=== PATIENT | male | born 1985 | race Caucasian/White ===

== ENCOUNTER 2023-11-26 00:46 | Emergency (ER) | payer OTHER, SELFPAY ==
[2023-11-26 00:49] VITALS: BP 139/99
--- NOTE | 2023-11-26 01:24 | EDRN ---
This RN was alerted by registration that patient was bleeding heavily from his foot. This RN went from Triage 1 to assess patient, pt found with foot wrapped in plastic bag and in work boot, no bleeding noted through bag or boot. This RN alerted
patient that RN would be right with patient. Pt then yelled at RN, 'This is a [facility] emergency and I am in a [facility] emergency room so take care of me' This RN again told patient she would be right with him as soon as the current triage was
finished and had patient sit in Triage 2. Pt shouted to this RN, ' shut up and stop talking to me so you can finish your job and help me, I am more important'. Pt escorted to Triage 2 with his mother. Pt uncooperative during Triage, ETOH noted on
breath and no bleeding noted. 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 Blue hugo placed under foot and call light given to patient.
--- NOTE | 2023-11-26 01:33 | ED.GENMED ---
History of Present Illness
General
Chief Complaint: Skin Surface Trauma
Time Seen by Provider: 11/26/23 00:54
Travel History
Have you had any contact with someone who has COVID-19?: No
Do you have any symptoms of coronavirus? Fever > 100 degrees, chills, cough, shortness of breath, sore throat, loss of taste or smell, muscle aches, or headache?: No
History of Present Illness
History of Present Illness:
38-year-old male presents the emergency department for evaluation of a laceration to the left plantar foot. He stepped on a glass jar that broke. He is uncertain if there is glass in his foot. Last tetanus is unknown
Past History
Past History
ED Past Medical History: None
ED Past Surgical History: None
Social History
Tobacco: Non-smoker
Alcohol: None
Drug: None
Living: with family
Review of Systems
Review of Systems
Allergies reviewed?: Yes
All Other Systems: ROS reviewed and negative except as documented in HPI and ROS
Phy Exam
Physical Exam
Physical Exam:
GEN: Well appearing, NAD, WDWN
HEENT: Oral mucosa moist, no scleral icterus
Cardiac: Regular rate
Lung: No respiratory distress, no tachypnea
MSK: No gross deformity or injuries
Skin: Good color, no pallor or jaundice, no rashes. 3 cm linear laceration to the left plantar midfoot, no active bleeding, no visible foreign bodies on wound inspection
Neuro: AO x3, moves all extremities freely
Psych: Calm, cooperative
Course
Orders/Labs/Results
Orders:
Orders
11/26/23 01:33
Tetanus/Diphth/Acelpertussis [Adacel] 0.5 ml IM .ONCE ONE
Vital Signs
Initial and Last Documented VS:
Initial Vital Signs
Temp Pulse Resp BP Pulse Ox
98.7 F 93 18 139/99 97
11/26/23 00:49 11/26/23 00:49 11/26/23 00:49 11/26/23 00:49 11/26/23 00:49
Last Documented Vital Signs
Temp Pulse Resp BP Pulse Ox
98.7 F 93 18 139/99 97
11/26/23 00:49 11/26/23 00:49 11/26/23 00:49 11/26/23 00:49 11/26/23 00:49
Procedures
Laceration Closure
Right Foot:
Status of Wound: clean
Size of Wound in cm: 3
Description of Wound Edges: sharp
Preparation: cleaned with soap & water
Anesthesia: 1% Lidocaine with epi
Revision/Debridement: routine- no revision
Wound exploration: explored to base- no FB
Type of Closure: single layer closure
Skin Closure Material: 4-0 prolene
Number of sutures: 3
MDM/Problems Addressed
MDM/Problems Addressed:
Deep wound inspection reveals no obvious palpable or visible foreign bodies. Wound closed without difficulty. Discussed supportive care. Tetanus updated in the emergency department
*Critical Care Note
Total Time (30-74mins, 75-104mins- exclusive of procedures): Not Applicable
ED Attending Note
-
Portions of this chart may have been created with voice recognition software.� Occasional wrong word or��sound alike� substitutions may have occurred due to the inherent limitations of voice recognition software.
Discharge Plan
Departure
Patient Disposition: Home (Routine Discharge)
Date of Disposition: 11/26/23
Time of Disposition: 01:33
Patient with high blood pressure during this ER visit?: No
Discharge Problem:
Laceration of foot, left
Instructions: Laceration Repair With Stitches (DC)
Prescriptions:
No Action
hydrocodone-acetaminophen 5 MG/500 MG tablet
1 - 2 tab PO .Q4-6HPRN PRN (Reason: PAIN) Qty: 20 0RF
ibuprofen 600 MG tablet
600 mg PO Q6HPRN PRN (Reason: pain) Qty: 20 0RF
Activity Restrictions/Additional Instructions:
Keep dry for 24 hours
SUture removal in 10-14 days
Interventions
Interventions:
*Risk Screen - Suicide Last Done: 11/26/23 00:51
*General Assessment Last Done: 11/26/23 00:51
*Neglect/Abuse Screening Last Done: 11/26/23 00:51
ED- Fall Risk Assessment Last Done: 11/26/23 01:54
*ED COVID-19 Vaccine History Last Done: 11/26/23 00:49
*Nursing Disposition Last Done: 11/26/23 01:54
ED-Skin Assessment Last Done: 11/26/23 01:32
Discharge Date and Time
Discharge Date/Time: 11/26/23 01:58
[2023-11-26] MEDS: ADACEL 0.5 ML IM (01:38)
== END 2023-11-26 01:58 | disposition home or self-care (01) ==
LOC: EMR 00:46
PROVIDERS: EMERGENCY PHYSICIAN Emergency Medicine
DX: S91.312A Laceration without foreign body, left foot, initial encounter (principal); W25.XXXA Contact with sharp glass, initial encounter; Z23 Encounter for immunization
CPT/HCPCS: 99284; 12002; 90471; 90715

== ENCOUNTER 2025-07-24 12:26 | Emergency (ER) | payer OTHER, SELFPAY ==
[2025-07-24 12:28] VITALS: BP 125/78
[2025-07-24 12:56] LABS: Hematocrit 40.5 % (39.0-52.0); Hemoglobin 14.3 g/dL (13.0-18.0); Mean Corp Hgb Conc. 35.3 g/dL (33.0-37.0); Mean Corpuscular Volume 91.4 fL (80.0-94.0); Nucleated Red Blood Cells % 0 % (-); Platelet Count 217 10^3/uL (130-400); Red Cell Dist. Width 12.3 % (11.5-14.5)
[2025-07-24 12:59] LABS: Urine Character Clear (Clear)
[2025-07-24 13:10] LABS: ALT (SGPT) 39 U/L (0-50); AST (SGOT) 39 U/L (17-59); Albumin 5.2 g/dl (3.5-5.0); Alkaline Phosphatase 74 U/L (38-126); Blood Urea Nitrogen 11 mg/dl (9-20); Calcium 9.6 mg/dl (8.4-10.2); Carbon Dioxide 25 mmol/L (22-30); Chloride 104 mmol/L (98-107); Glucose 103 mg/dl (70-99); Lipase 148 U/L (23-300); Potassium 4.2 mmol/L (3.5-5.1); Sodium 137 mmol/L (135-145); Total Protein 7.6 g/dl (6.3-8.2); eGFR > 60.00
[2025-07-24 13:32] LABS: Urine Squamous Cell >30 /LPF (Few)
[2025-07-24 13:33] LABS: Urine Red Blood Cell 0-2 /HPF (0-2); Urine White Cell 21-25 /HPF (0-5)
[2025-07-24 13:38] VITALS: BMI 24.2
--- NOTE | 2025-07-24 14:57 | ED.GENMED ---
History of Present Illness
General
Chief Complaint: Abdominal Pain
Source: patient
Exam Limitations: none
Time Seen by Provider: 07/24/25 13:11
Nursing documentation reviewed up to this point in time: agreed with
History of Present Illness
History of Present Illness:
40-year-old male with history as noted presents for evaluation of groin pain and swelling. Patient reports that 4 years ago he started develop swelling in his left groin/scrotum that he believes is a hernia. He says it had not bothered him until
the past few days. He says for the past few days he has had consistent pain in the area and he feels swelling is worse with prompted ER visit. Aside from swelling he reports that he had 1 episode of bloody stools on Tuesday. He denies any nausea
or vomiting. Denies fevers or chills. Denies any other acute symptoms.
Past History
Past History
ED Past Medical History: None
ED Past Surgical History: None
Social History
Tobacco: Non-smoker
Alcohol: None
Drug: None
Living: with family
Review of Systems
Review of Systems
All Other Systems: ROS reviewed and negative except as documented in HPI and ROS
Constitutional: Denies fever
Respiratory: Denies trouble breathing
Cardiac: Denies chest pain
ABD/GI: Reports abdominal pain (Abdominal/groin pain); Denies nausea or vomiting
: Denies dysuria
Musculoskeletal: Denies neck pain or back pain
Phy Exam
Physical Exam
Physical Exam:
General: Awake, alert, oriented x3; no acute distress
Head: Normocephalic, atraumatic
Eyes: Conjunctiva normal
Throat: Airway intact, handling secretions
Neck: Trachea midline, moving freely without pain
Lungs: Breathing comfortably no distress
Heart: Regular rate
Abd: Soft, non distended, nontender
: Patient has large left inguinal hernia somewhat firm and tender only partially reducible
Neuro: Grossly intact
Skin: Warm and dry
Extremities: Warm and well-perfused
Scores
Heart Failure Risk
Heart Failure Risk Score: Not Applicable
Heart Score for Chest Pain Patients
STEMI patient?: Not applicable
Withdrawal Assessment of Alcohol
Withdrawal Assessment Completed?: Not applicable
Course
Orders/Labs/Results
Orders:
Orders
07/24/25 12:37
Complete Blood Count/With Diff Urgent
Comprehensive Metabolic Panel Urgent
Lipase Urgent
Urinalysis Reflex To Culture Urgent
Date Specimen was Collected: 07/24/25
Time Specimen was Collected: 12:31
Urine Microscopic Reflex Cult Urgent
Urine Culture Urgent
LUIS EDUARDO Source: U
Specimen Description:
Date Specimen was Collected: 07/24/25
Time Specimen was Collected: 12:31
07/24/25 13:26
CT Abd/pelvis W Iv Cont Urgent
Comment:
Reason For Exam: left groin pain, large hernia TTP
07/24/25 15:05
SURGICAL CONSULT Urgent
Consulting Provider: Kennedy Ibanez
Was physician already notified: Yes
Abnormal Lab Results
07/24/25
12:37
WBC 12.7 H 10^3/uL
(4.8-10.8)
RBC 4.43 L 10^6/uL
(4.70-6.10)
MCH 32.3 H pg
(27.0-31.0)
Abs Immat Gran (auto) 0.1 H 10^3/uL
(0-0.05)
Absolute Neuts (auto) 9.1 H 10^3/uL
(1.4-6.5)
Absolute Monos (auto) 0.9 H 10^3/uL
(0.1-0.6)
Lymphocytes % 18.2 L %
(20.5-51.1)
Glucose 103 H mg/dl
(70-99)
Albumin 5.2 H g/dl
(3.5-5.0)
Urine Ketones 1+ A
(Negative)
Leukocyte Esterase Rfl 2+ A
(Negative)
Urine WBC (Reflex) 21-25 A /HPF
(0-5)
Urine Bacteria (Reflex) Few A
(Negative)
Urine Albumin (Reflex) 2+ A
(Neg - Trace)
07/24/25 12:37
07/24/25 12:37
Vital Signs
Initial and Last Documented VS:
Initial Vital Signs
Temp Pulse Resp BP Pulse Ox
36.9 C 85 18 125/78 97
07/24/25 12:28 07/24/25 12:28 07/24/25 12:28 07/24/25 12:28 07/24/25 12:28
Last Documented Vital Signs
Temp Pulse Resp BP Pulse Ox
36.9 C 85 18 125/78 97
07/24/25 12:28 07/24/25 12:28 07/24/25 12:28 07/24/25 12:28 07/24/25 15:01
MDM/Problems Addressed
Differential Diagnosis Includes:
Inguinal hernia, less likely epididymitis/orchitis
MDM/Problems Addressed:
40-year-old male presents for evaluation of pain and swelling in left groin/lower abdomen�he has what he believes is a hernia for 4 years but over the past few days has been consistently bothering him. Vitals and exam as above�exam is consistent
with an incarcerated hernia. Nothing to suggest strangulation. Labs were sent off which showed marginal leukocytosis but no other significant abnormalities�urinalysis was contaminated. Will send for CT to better visualize. Reassess after the
above.
CT reviewed by me does show large left inguinal hernia. There is a loop of bowel but no stranding appreciated on my review�awaiting final radiology report. Case discussed with general surgery for consult.
General surgery evaluated bedside and able to reduce hernia. Patient feeling better afterwards. Recommended outpatient follow-up for definitive repair. Patient comfortable with this plan. All questions answered.
*Radiology
Radiology exam reviewed: preliminary read by ED provider and radiology read reviewed
*Pulse Oximetry
SaO2: 97
Oxygen Mode of Delivery: Room air
Patient hypoxic: no (97%)
*Critical Care Note
Total Time (30-74mins, 75-104mins- exclusive of procedures): Not Applicable
Data Reviewed
Source: patient
Patient Management
Discussion with other providers: Recreation Engineer (Discussed with general surgeon)
ED Attending Note
-
Portions of this chart may have been created with voice recognition software.� Occasional wrong word or��sound alike� substitutions may have occurred due to the inherent limitations of voice recognition software.
Discharge Plan
Departure
Patient Disposition: Home (Routine Discharge)
Date of Disposition: 07/24/25
Time of Disposition: 15:39
Patient with high blood pressure during this ER visit?: No
Discharge Problem:
Inguinal hernia
Instructions: Groin hernias, Groin hernia repair (DC)
Prescriptions:
No Action
hydrocodone-acetaminophen 5 MG/500 MG tablet
1 - 2 tab PO .Q4-6HPRN PRN (Reason: PAIN) Qty: 20 0RF
ibuprofen 600 MG tablet
600 mg PO Q6HPRN PRN (Reason: pain) Qty: 20 0RF
Referrals:
Kennedy Ibanez MD [Active, Surgical] - Call in 1-3 days for appt
Referral Note: General surgeon--please call to follow up for definitive repair of your hernia
Activity Restrictions/Additional Instructions:
Thank you for visiting the Emergency Department at [facility].
1. Please schedule a follow up appointment as directed. Call first thing tomorrow morning to make an appointment.
2. If indicated, please take your medications as instructed and indicated on discharge paperwork.
3. If any of your symptoms do not improve, or persist, or become more severe within 6-12 hours, please return to the emergency department for further care.
4. Please return to the emergency department if you develop a headache, neck pain/stiffness, fever greater than 100.4F, chest pain, shortness of breath, persistent nausea, vomiting, slurred speech, difficulty walking, numbness/tingling, weakness,
signs of infection or any other symptoms that are worrisome to you.
Please call [phone] if you have any questions.
Interventions
Interventions:
*Risk Screen - Suicide Last Done: 07/24/25 12:28
*General Assessment Last Done: 07/24/25 12:28
*Neglect/Abuse Screening Last Done: 07/24/25 12:28
*ED- Fall Risk Assessment Last Done: 07/24/25 13:14
*ED COVID-19 Vaccine History Last Done: 07/24/25 12:28
*ED Influenza Vaccine History Last Done: 07/24/25 12:28
[facility] Assessment Last Done: 07/24/25 13:13
Discharge Date and Time
Print Language: [place]
--- NOTE | 2025-07-24 15:33 | CON.GS ---
Consultation
-
Date/Time Consultation Performed: 07/24/2025 315 p.m.
Performing Provider: Shamar
Reason for Consultation: Left inguinal hernia
Medical History
-
Chief Complaint: Left inguinal pain
History of Present Illness:
Patient is a 40-year-old male with a known history of a left inguinal hernia that he has been following expectantly for the last 4 to 5 years. It is typically only mild and minimally symptomatic with awareness of the hernia being present and
occasional slight discomfort. He has never sought evaluation for repair.
He awoke this a.m. with a crampy discomfort in the left inguinal region which he typically has not experienced in the past. It did not improve with having a bowel movement and he had some mild nausea prompting emergency department evaluation. In
the past he has been able to reduce the hernia but it was a bit more challenging for him to reduce it today.
Past Medical History
Past Medical History: Other (Patient denies any significant past medical or active medical history but he is an active smoker.)
Past Surgical History: None
Social History
Tobacco: Smoker
Employment: Employed (Construction)
Family History
Family History: Reviewed & Noncontributory
Allergies / Home Medications
Allergy/AdvReac Type Severity Reaction Status Date / Time
duracef Allergy Unknown Uncoded 07/24/25 12:30
�Medication �Instructions �Recorded �Confirmed �Type
hydrocodone 5 mg-acetaminophen 500 1 - 2 tab PO .Q4-6HPRN PRN PAIN 02/17/10 Rx
mg tablet #20 tabs
ibuprofen 600 mg tablet 600 mg PO Q6HPRN PRN pain #20 tabs 06/15/15 Rx
Review of Systems
-
History Source: Patient
All other systems: Negative unless noted
A 10 point review of systems was completed, and was negative except as per HPI.
Physical Exam
Vital Signs
Temp Pulse Resp BP Pulse Ox
98.5 F 85 18 125/78 97
07/24/25 12:28 07/24/25 12:28 07/24/25 12:28 07/24/25 12:28 07/24/25 15:01
07/23/25 07/24/25 07/25/25
06:59 06:59 06:59
Actual Weight 76.6 kg
Body Mass Index (BMI) 24.2
Lab Results
07/24/25 12:37
07/24/25 12:37
WBC 12.7 10^3/uL (4.8-10.8) H 07/24/25 12:37
Hgb 14.3 g/dL (13.0-18.0) 07/24/25 12:37
Hct 40.5 % (39.0-52.0) 07/24/25 12:37
Plt Count 217 10^3/uL (130-400) 07/24/25 12:37
Abs Immat Gran (auto) 0.1 10^3/uL (0-0.05) H 07/24/25 12:37
Neutrophils % 72.0 % (42.2-75.2) 07/24/25 12:37
Physical Exam
General: Well Developed, Well Nourished, No Apparent Distress, Comfortable and Other (Lying in stretcher in emergency department room)
HEENT: Normocephalic, Anicteric, Moist Mucous Membranes and Atraumatic
Respiratory: Non Labored Respirations
Cardiac: Regular Rhythm
GI: Soft, Non Distended, Tender (Slight tenderness to palpation of the left lower quadrant and inguinal area. No rebound, no rigidity, no guarding.) and Other (Left inguinal hernia soft, reducible with mild compression/pressure. Reoccurs after
reduction. Mild discomfort during reduction but no significant pain.)
Genito-urinary: Inguinal Hernia (Left)
Skin: Warm
Neuro: AO x 3
Psych: Calm
Data Reviewed
-
CT Scan: Image Personally Visualized and interpreted (Left indirect inguinal hernia containing sigmoid colon. No proximal dilation suggestive of obstruction. Some free fluid in the distal hernia sac and slight stranding. But no wall thickening.)
Assessment / Plan
-
Assessment: 40-year-old male with acutely symptomatic but reducible left indirect inguinal hernia extending into the scrotal region with CT imaging confirming presence of nonobstructed sigmoid colon.
With careful pressure the left inguinal hernia was reducible without excessive manipulation and patient tolerated reduction well. Expectedly the hernia recurred but is very soft and continues to be reducible.
Reviewed with patient indications for operative correction. Robotic assisted laparoscopic repair left inguinal hernia with mesh was reviewed in detail including the operative technique, treatment options, benefits and risk such as but not limited
to bleeding, infectious and related complications, iatrogenic injury to surrounding viscera such as bowel or bladder and testicle, utilization of permanent prosthetic mesh, chronic postoperative inguinal pain, hernia recurrence risk.
He wishes to pursue operative repair but as an outpatient with subsequent scheduling. There is no indication or need for urgent or emergent repair. We discussed utilizing an inguinal hernia truss which he does have available at home but has not
tried to use yet.
Plan:
Discharge home
Utilize truss for assistance with managing hernia as a bridge to subsequent
Counseled regarding utilization of truss and how to reduce his hernia
Our office will follow-up with patient to proceed with scheduling at a future date.
== END 2025-07-24 15:50 | disposition home or self-care (01) ==
LOC: EMR 12:26
PROVIDERS: Emergency Medicine; CONSULT PHYSICIAN Surgery; EMERGENCY PHYSICIAN Emergency Medicine
DX: K40.90 Unilateral inguinal hernia, without obstruction or gangrene, not specified as recurrent (principal); F17.200 Nicotine dependence, unspecified, uncomplicated
CPT/HCPCS: 99284; 74177; 80053; 81003; 81015; 83690; 85025; 87086; Q9967